=== PATIENT | male | born 1985 | race Caucasian/White ===

== ENCOUNTER 2019-02-21 23:31 | Inpatient (IN) ==
[2019-02-22] MEDS ORDERED: HYDROmorphone 2 MG/1 ML VIAL IV STA (01:07)
[2019-02-22] MEDS ORDERED: ONDANSETRON 4 MG/2 ML VIAL IV STA (01:07)
[2019-02-22] MEDS ORDERED: PIPERACILLIN/TAZOBACTAM 3,375 MG in SODIUM CHLORIDE 0.9% 100 ML IV STA (01:07)
[2019-02-22] MEDS ORDERED: PANTOPRAZOLE 40 MG VIAL IV STA (01:07)
[2019-02-22] MEDS ORDERED: SODIUM CHLORIDE 0.9% 500 ML IV STA (01:07)
[2019-02-22] MEDS ORDERED: ACETAMINOPHEN 325 MG TABLET PO PRN (02:08)
[2019-02-22] MEDS ORDERED: ONDANSETRON 4 MG/2 ML VIAL IV PRN ×2 (02:08→12:40)
[2019-02-22 02:11] LABS: Basophils # 0.1 10*3/uL (0.0-0.2); Basophils % 0.6 % (0.0-0.8); Eosinophils # 0.6 10*3/uL (0.0-0.87); Eosinophils % 4.4 % (0.00-10.9); Hemoglobin 14.8 GM/DL (14.0-18.0); Immature Granulocytes % 0.5 %; Immature Granulocytes Absolute 0.06 #; Lymphocytes # 2.8 10*3/uL (1.4-4.0); Lymphocytes % 22.7 % (21.2-54.2); Mean Corpuscular HGB Conc 32.9 GM/DL (32-36); Mean Corpuscular Volume 85.2 FL (87-102); Mean Platelet Volume 10.8 FL (9.6-12.0); Monocytes % 8.1 % (1.7-12.7); Neutrophils % 63.7 % (38.7-73.9); Platelet Count 201 T/CUMM (130-400); Red Blood Count 5.28 MC/CUMM (3.8-5.5); White Blood Count 12.4 T/CUMM (4-12)
[2019-02-22 02:29] LABS: Albumin 3.8 G/DL (3.4-5.0); Bilirubin,Total 0.5 MG/DL (0.2-1.0); Calcium 8.6 MG/DL (8.5-10.1); Osmolality,Calculated 280.3 MOS/KG (273-304)
[2019-02-22] MEDS: HYDROmorphone 2 MG/1 ML VIAL IV PRN ×3 (04:01→17:16)
[2019-02-22] MEDS: PIPERACILLIN/TAZOBACTAM 3,375 MG in SODIUM CHLORIDE 0.9% 100 ML IV SCH ×3 (04:06→18:15)
[2019-02-22] MEDS: SODIUM CHLORIDE 0.9% 1,000 ML IV SCH ×2 (04:46→12:52)
[2019-02-22 06:17] LABS: Basophils # 0.1 10*3/uL (0.0-0.2); Basophils % 0.5 % (0.0-0.8); Eosinophils # 0.5 10*3/uL (0.0-0.87); Eosinophils % 4.7 % (0.00-10.9); Hemoglobin 14.2 GM/DL (14.0-18.0); Immature Granulocytes % 0.4 %; Immature Granulocytes Absolute 0.04 #; Lymphocytes # 2.8 10*3/uL (1.4-4.0); Lymphocytes % 25.2 % (21.2-54.2); Mean Corpuscular Volume 85.3 FL (87-102); Mean Platelet Volume 11.6 FL (9.6-12.0); Monocytes % 8.2 % (1.7-12.7); Platelet Count 199 T/CUMM (130-400); Red Blood Count 5.04 MC/CUMM (3.8-5.5); Red Cell Distribution Width 12.1 % (9.3-17.3)
[2019-02-22 06:41] LABS: Albumin 3.6 G/DL (3.4-5.0); Bilirubin,Total 0.6 MG/DL (0.2-1.0); Calcium 8.6 MG/DL (8.5-10.1); Osmolality,Calculated 281.1 MOS/KG (273-304); Total Protein 6.6 G/DL (6.4-8.3)
[2019-02-22] MEDS: PANTOPRAZOLE 40 MG TABLET PO SCH (08:48)
[2019-02-22] MEDS ORDERED: hydrALAZINE 20 MG/1 ML VIAL IV PRN (10:17)
[2019-02-22] MEDS ORDERED: TISSUE ADHESIVE 1 EACH APPLICATOR TOP ONE (10:38)
[2019-02-22] MEDS ORDERED: BUPIVACAINE MPF 0.25% 30 ML VIAL ONE (10:38)
[2019-02-22] MEDS ORDERED: LIDOCAINE 1% 20 ML VIAL ONE (10:38)
[2019-02-22] MEDS ORDERED: PROMETHAZINE INJ 25 MG in SODIUM CHLORIDE 0.9% 50 ML IV PRN (12:40)
[2019-02-22] MEDS ORDERED: PROPOFOL 200 MG/20 ML VIAL IV ONE (12:41)
[2019-02-22] MEDS ORDERED: GLYCOPYRROLATE 0.4 MG/2 ML VIAL ONE (12:42)
[2019-02-22] MEDS ORDERED: ROCURONIUM 100 MG/10 ML VIAL IV ONE (12:42)
[2019-02-22] MEDS ORDERED: SUCCINYLCHOLINE 200 MG/10 ML VIAL ONE (12:42)
[2019-02-22] MEDS ORDERED: SEVOFLURANE 1 UNIT/15 MINUTE INH ONE (12:42)
[2019-02-22] MEDS ORDERED: ACETAMINOPHEN 1,000 MG/100 ML VIAL IV ONE (12:42)
[2019-02-22] MEDS ORDERED: ONDANSETRON 4 MG/2 ML VIAL ONE ×2 (12:42→12:45)
[2019-02-22] MEDS ORDERED: PHENYLEPHRINE 1 MG/10 ML SYRINGE IV ONE (12:42)
[2019-02-22] MEDS ORDERED: fentaNYL 100 MCG/2 ML VIAL ONE (12:42)
[2019-02-22] MEDS ORDERED: MIDAZOLAM 2 MG/2 ML VIAL ONE (12:42)
[2019-02-22] MEDS ORDERED: NEOSTIGMINE 10 MG/10 ML VIAL ONE (12:42)
[2019-02-22] MEDS ORDERED: MEPERIDINE 25 MG/1 ML VIAL ONE ×2 (12:45→12:54)
[2019-02-22] MEDS ORDERED: PROMETHAZINE 25 MG/1 ML VIAL ONE (12:45)
[2019-02-22] MEDS: MEPERIDINE 25 MG/1 ML VIAL IV PRN ×2 (12:45→12:55)
[2019-02-23] MEDS: SODIUM CHLORIDE 0.9% 1,000 ML IV SCH (01:30)
[2019-02-23] MEDS: PIPERACILLIN/TAZOBACTAM 3,375 MG in SODIUM CHLORIDE 0.9% 100 ML IV SCH (03:21)
[2019-02-23 05:48] LABS: Basophils # 0.1 10*3/uL (0.0-0.2); Basophils % 0.5 % (0.0-0.8); Eosinophils # 0.6 10*3/uL (0.0-0.87); Hematocrit 41.4 VOL% (42.0-52.0); Hemoglobin 13.3 GM/DL (14.0-18.0); Immature Granulocytes % 0.6 %; Immature Granulocytes Absolute 0.07 #; Lymphocytes # 2.5 10*3/uL (1.4-4.0); Mean Corpuscular HGB Conc 32.1 GM/DL (32-36); Mean Corpuscular Volume 88.1 FL (87-102); Mean Platelet Volume 11.3 FL (9.6-12.0); Monocytes % 7.2 % (1.7-12.7); Neutrophils % 63.7 % (38.7-73.9); Platelet Count 177 T/CUMM (130-400); Red Cell Distribution Width 12.2 % (9.3-17.3)
[2019-02-23 06:07] LABS: Albumin 3.1 G/DL (3.4-5.0); Bilirubin,Total 0.4 MG/DL (0.2-1.0); Calcium 8.1 MG/DL (8.5-10.1); Osmolality,Calculated 280.3 MOS/KG (273-304); Total Protein 5.9 G/DL (6.4-8.3)
[2019-02-23] MEDS: PANTOPRAZOLE 40 MG TABLET PO SCH (07:43)
[2019-02-23 07:53] VITALS: BP 150/68
== END 2019-02-23 08:35 | disposition home or self-care (01) | DRG 418 ==
LOC: EDUNIT# → EDBD → N.ED 23:31 → N.EDINP 02-22 01:15 → N.5E 02-22 02:08
PROVIDERS: ADMIT Surgery; ATTEND Surgery
PROC: LAPCHOL (2019-02-22 11:00)